=== PATIENT | male | born 1985 | race Caucasian/White ===

== ENCOUNTER 2018-07-28 20:57 | Inpatient (IN) | payer OTHER ==
[2018-07-28] MEDS ORDERED: cefTRIAXone IN SWFI 1,000 MG/10 ML SYRINGE IVP STA (21:42)
[2018-07-28] MEDS ORDERED: SODIUM CHLORIDE 0.9% 1,000 ML IV ONE (21:42)
--- NOTE | 2018-07-28 22:43 | ED ---
Extremity Problem HPI - General Source: patient Mode of arrival: ambulatory Limitations: no limitations <Rose Boss - Last Filed: 07/29/18 00:16> <Roxy Ibarra - Last Filed: 07/29/18 06:03> - General Chief complaint: Extremity Problem,Nontraumatic Stated complaint: Knee pain/infection Time Seen by Provider: 07/28/18 21:09 - History of Present Illness Initial comments: 33-year-old male presenting for left lower extremity erythema. 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 He had a small abrasion of the left knee, and developed a blister. Patient states the blister ruptured and then he began to develop surrounding erythema that extended to mid thigh to the ankle. Patient states it began to swell the skin in that area. Patient denies any circumferential swelling of the knee difficulty ranging at the left knee fever, chills, night sweats. Patient denies any numbness, tingling, loss sensation, coolness, pallor of the extremity. She states in the skin is stretched after flexion he does have some pain however this appears superficial and over the area of erythema. Patient states there is tenderness to palpation. Patient states he was able to squeeze pus out of the area where there had been a blister. Patient denies any antibiotic treatment. Patient remaining review of system negative, patient denies any recent shortness of breath, chest pain, back pain, abdominal pain, nausea or vomiting, dysuria or hematuria, constipation or diarrhea, headaches or visual changes, or any other complaints. (Rose Boss) - Related Data Home Medications Medication Instructions Recorded Confirmed [id number] 2 tab PO TID PRN 07/28/18 07/28/18 [Excedrin] Allergies Allergy/AdvReac Type Severity Reaction Status Date / Time No Known Allergies Allergy Verified 07/28/18 21:42 Review of Systems ROS Other: All systems not noted in ROS Statement are negative. <Rose Boss - Last Filed: 07/29/18 00:16> ROS Other: All systems not noted in ROS Statement are negative. <Roxy Ibarra - Last Filed: 07/29/18 06:03> ROS Statement: Those systems with pertinent positive or pertinent negative responses have been documented in the HPI. Past Medical History Past Medical History: No Reported History History of Any Multi-Drug Resistant Organisms: None Reported Past Surgical History: No Surgical Hx Reported, Orthopedic Surgery Additional Past Surgical History / Comment(s): (L) knee surgery, (R) hand surgery. Past Psychological History: No Psychological Hx Reported Smoking Status: Never smoker Past Alcohol Use History: None Reported Past Drug Use History: None Reported <Rose Boss - Last Filed: 07/29/18 00:16> - Past Family History Mother History Unknown: Yes <Roxy Ibarra P - Last Filed: 07/29/18 06:03> General Exam Limitations: no limitations <Rose Boss - Last Filed: 07/29/18 00:16> - General Exam Comments Initial Comments: General: The patient is awake and alert, in no distress, and does not appear acutely ill. Eye: Pupils are equal, round and reactive to light, extra-ocular movements are intact. No nystagmus. There is normal conjunctiva bilaterally. No signs of icterus. Ears, nose, mouth and throat: There are moist mucous membranes and no oral lesions. Neck: The neck is supple, there is no tenderness or JVD. Cardiovascular: There is a regular rate and rhythm. No murmur, rub or gallop is appreciated. Respiratory: Lungs are clear to auscultation, respirations are non-labored, breath sounds are equal. No wheezes, stridor, rales, or rhonchi. Musculoskeletal: Normal ROM of the left knee equal comparison the right, no significant tenderness. Strength 5/5. Sensation intact of the LE equal b/l. DP pulses equal bilaterally 2+. Neurological: A&O x 3. CN II-XII intact, There are no obvious motor or sensory deficits. Coordination appears grossly intact. Speech is normal. Skin: Skin is warm and dry and no rashes or lesions are noted. Small abrasion over the anterior left knee, there is significant surrounding erythema with non-distinct borders that is beyond from ankle to about mid thigh >50% of leg and circumferential of lower portion. Warm to touch, no palpable abscess. Psychiatric: Cooperative, appropriate mood & affect, normal judgment. (Rose Boss) Course Vital Signs 07/28/18 07/29/18 21:00 00:37 Temperature 98.6 F 98.3 F Pulse Rate 109 H 86 Respiratory 18 19 Rate Blood Pressure 150/87 125/81 O2 Sat by Pulse 97 100 Oximetry Medical Decision Making - Lab Data Result diagrams: 07/28/18 22:47 07/28/18 22:47 <Rose Boss - Last Filed: 07/29/18 00:16> - Lab Data Result diagrams: 07/28/18 22:47 07/28/18 22:47 <Roxy Ibarra - Last Filed: 07/29/18 06:03> - Medical Decision Making 33-year-old male presents for erythema of left lower extremity. Upon examination there is evidence of cellulitis that appears to have mechanical over the left anterior knee. Due to blistering. This does not appear to be a septic joint, patient able to fully range without difficulty there is no circumstantial swelling at the knee. No limitations with range of motion or diffuse tenderness of joint. No joint effusion on XR. SQ changes consistent with cellulitis noted. Pt has constitutional symptoms. Upon laboratory studies patient has leukocytosis with left shift. At this time given the extent of cellulitis I feel patient should be admitted for IV antibiotics. Patient was given 1 g Rocephin in the emergency department as well as IV fluids. Discussed the case with attending provider Dr. Ibarra who will speak with admitting provider Dr. Lynn. Patient is agreeable admission denies questions at this time. (Rose Boss) I personally saw and examined the patient. I reviewed and agree with the mid- level provider findings including all diagnostic interpretations and treatment plans as written unless otherwise stated. (Roxy Ibarra) - Lab Data Lab Results 07/28/18 07/28/18 Range/Units 22:47 22:47 WBC 13.0 H (3.8-10.6) k/uL RBC 4.86 (4.30-5.90) m/uL Hgb 13.8 (13.0-17.5) gm/dL Hct 42.9 (39.0-53.0) % MCV 88.3 (80.0-100.0) fL MCH 28.4 (25.0-35.0) pg MCHC 32.1 (31.0-37.0) g/dL RDW 13.5 (11.5-15.5) % Plt Count 342 (150-450) k/uL Neutrophils % 75 % Lymphocytes % 13 % Monocytes % 8 % Eosinophils % 2 % Basophils % 1 % Neutrophils # 9.8 H (1.3-7.7) k/uL Lymphocytes # 1.7 (1.0-4.8) k/uL Monocytes # 1.0 (0-1.0) k/uL Eosinophils # 0.3 (0-0.7) k/uL Basophils # 0.1 (0-0.2) k/uL Sodium 138 (137-145) mmol/L Potassium 3.7 (3.5-5.1) mmol/L Chloride 104 (98-107) mmol/L Carbon Dioxide 25 (22-30) mmol/L Anion Gap 9 mmol/L BUN 19 (9-20) mg/dL Creatinine 0.98 (0.66-1.25) mg/dL Est GFR (CKD-EPI)AfAm >90 (>60 ml/min/1.73 sqM) Est GFR (CKD-EPI)NonAf >90 (>60 ml/min/1.73 sqM) Glucose 92 (74-99) mg/dL Calcium 9.1 (8.4-10.2) mg/dL Total Bilirubin 0.7 (0.2-1.3) mg/dL AST 31 (17-59) U/L ALT 38 (21-72) U/L Alkaline Phosphatase 98 (38-126) U/L Total Protein 7.0 (6.3-8.2) g/dL Albumin 3.8 (3.5-5.0) g/dL Disposition Is patient prescribed a controlled substance at d/c from ED?: No Time of Disposition: 23:44 Decision to Admit Reason: Admit from EC Decision Date: 07/28/18 Decision Time: 23:45 <Rose Boss - Last Filed: 07/29/18 00:16> <Roxy Ibarra P - Last Filed: 07/29/18 06:03> Clinical Impression: Left leg cellulitis, Leukocytosis Disposition: ADMITTED IP TO THIS [facility] Condition: Stable
--- NOTE | 2018-07-28 23:11 | XR ---
EXAM: XR Left Knee, 3 views CLINICAL HISTORY: Reason: Pain TECHNIQUE: Three views of the left knee. COMPARISON: None available FINDINGS: Bones/joints: No evidence of fracture or dislocation. No significant arthritic changes. No evidence of knee joint effusion. Soft tissues: Diffuse subcutaneous soft tissue edematous changes. IMPRESSION: No acute bone or joint abnormalities. Diffuse subcutaneous soft tissue edematous changes.
[2018-07-28 23:14] LABS: Basophils # (A) 0.1 k/uL (0-0.2); Basophils % (A) 1 %; Eosinophils # (A) 0.3 k/uL (0-0.7); Eosinophils % (A) 2 %; HCT 42.9 % (39.0-53.0); HGB 13.8 gm/dL (13.0-17.5); Lymphocytes # (A) 1.7 k/uL (1.0-4.8); Lymphocytes % (A) 13 %; MCH 28.4 pg (25.0-35.0); MCHC 32.1 g/dL (31.0-37.0); MCV 88.3 fL (80.0-100.0); Mean Platelet Volume 6.8; Monocytes % (A) 8 %; Neutrophils # (A) 9.8 k/uL (1.3-7.7); Neutrophils % (A) 75 %; Platelet Count 342 k/uL (150-450); RBC 4.86 m/uL (4.30-5.90); RDW 13.5 % (11.5-15.5)
[2018-07-28 23:30] LABS: ALT 38 U/L (21-72); AST 31 U/L (17-59); Albumin 3.8 g/dL (3.5-5.0); Alkaline Phosphatase 98 U/L (38-126); Anion Gap 9 mmol/L; Blood Urea Nitrogen 19 mg/dL (9-20); Calcium 9.1 mg/dL (8.4-10.2); Carbon Dioxide 25 mmol/L (22-30); Chloride 104 mmol/L (98-107); Glucose 92 mg/dL (74-99); Potassium 3.7 mmol/L (3.5-5.1); Sodium 138 mmol/L (137-145); Total Bilirubin 0.7 mg/dL (0.2-1.3)
[2018-07-28] MEDS ORDERED: ONDANSETRON 4 MG/2 ML VIAL IVP PRN (23:36)
[2018-07-28] MEDS ORDERED: NALOXONE 0.4 MG/ML 1 ML VIAL IV PRN (23:36)
[2018-07-28] MEDS ORDERED: IBUPROFEN 400 MG TAB PO PRN (23:36)
[2018-07-28] MEDS ORDERED: traMADol 50 MG TAB PO PRN (23:36)
[2018-07-28] MEDS ORDERED: ACETAMINOPHEN TAB 325 MG TAB PO PRN (23:36)
[2018-07-29] MEDS: SODIUM CHLORIDE 0.9% 1,000 ML IV SCH ×2 (00:22→19:19)
[2018-07-29] MEDS ORDERED: VANCOMYCIN IV PER PHARMACY 1 EACH MISC MISCELLANE PRN (00:28)
[2018-07-29] MEDS ORDERED: VANCOMYCIN 2,000 MG in SODIUM CHLORIDE 0.9% 500 ML 500 ML IVPB SCH (01:00)
[2018-07-29 01:25] VITALS: BMI 38.6
[2018-07-29] MEDS: VANCOMYCIN 2,000 MG in SODIUM CHLORIDE 0.9% 500 ML 500 ML IVPB SCH ×3 (09:01→23:47)
[2018-07-29] MEDS: HEPARIN SODIUM,PORCINE 5,000 UNIT/ML 1 ML VIAL SQ SCH ×3 (09:02→23:47)
--- NOTE | 2018-07-29 09:38 | HP ---
HISTORY AND PHYSICAL CHIEF COMPLAINT: A 33-year-old white male with infection in his left leg. 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 He had a blister which ruptured and sent erythema throughout his entire leg down to his ankle. Difficulty with left knee movement and swelling in his extremities. Denies any fever, chills, or sweats. No numbness or tingling or pallor. States his swelling is better since he has been admitted on IV vancomycin overnight. No prior treatments. MEDICATIONS: Home medicines are Excedrin. ALLERGIES: Negative. REVIEW OF SYSTEMS: Review of systems are negative except for as mentioned above. PHYSICAL EXAMINATION: Vital signs stable, afebrile. ENDOCRINE: Alert, oriented x3. OPHTHALMOLOGIC: Pupils equal, round, react to light and accommodation. CARDIAC: Regular rate and rhythm. Lungs are essentially clear. MUSCULOSKELETAL: Normal range of motion left knee. he has some mild abrasions below the knee x3. No significant abscess. INTEGUMENT: Shows some redness and warmth to the left leg from the ankle up to the knee, greater than 50% of the leg. No palpable abscess. PSYCH: Alert and oriented x3. NEUROLOGICALLY: Intact. White count is 13, hemoglobin 13.8. Creatinine 0.98. ASSESSMENT: Acute cellulitis of the left leg, over 50% of the leg, does not appear to be a septic joint, but we will get a consult with the bone doctor just in case. Remain on IV vancomycin. Infectious Disease consulted. MMODL / IJN: [id number] /
[2018-07-29] MEDS ORDERED: LIDOCAINE 2% INJ 20 MG/ML (20 ML MDV) SQ ONE (16:11)
--- NOTE | 2018-07-29 18:47 | P.CNOR ---
History of Present Illness - HPI Consult date: 07/29/18 Consult reason: joint pain, other History of present illness: Patient is very pleasant 33-year-old male who seen and examined today at bedside. The patient says that over the past week or so he has been doing some marily and tiling and been on his knees a lot. He developed a blister at his left knee which she said she became red and opened up last night. He had some drainage from the area presented to the hospital. He was admitted and started on some and antibiotics. He is some erythema and was seen by infectious disease and we are counseled in regards to his infection around his left knee. The patient denies any other injury. He denies having fevers chills or night sweats. He says he is not having pain in his knee with motion just tightness. He says he is able to bear weight. 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 He denies any numbness tingling in his lower extremity. He says he has a blister on his right knee but that has not been giving him problems. He says that since yesterday he has been on antibiotics at hospital and it seems to be decreasing in redness. He saw Dr. Guardado earlier today with infectious disease and the area opened up and if cultures of the area. He said there is some pus from the area and it was bloody. Review of Systems Left knee issues as stated in HPI. Denies any fevers chills or night sweats. Denies any numbness [place]'s lower extremities. Denies changes bowel bladder function. Denies any recent illness. Admits to working on marily and kneeling a lot over the past week doing tiling. Past Medical History Past Medical History: No Reported History History of Any Multi-Drug Resistant Organisms: None Reported Past Surgical History: No Surgical Hx Reported, Orthopedic Surgery Additional Past Surgical History / Comment(s): (L) knee surgery, (R) hand surgery. Past Anesthesia/Blood Transfusion Reactions: No Reported Reaction Past Psychological History: No Psychological Hx Reported Smoking Status: Never smoker Past Alcohol Use History: None Reported Past Drug Use History: None Reported - Past Family History Mother History Unknown: Yes Medications and Allergies Home Medications Medication Instructions Recorded Confirmed Type [id number]-[id number] 2 tab PO TID PRN 07/28/18 07/28/18 History [Excedrin] Allergies Allergy/AdvReac Type Severity Reaction Status Date / Time No Known Allergies Allergy Verified 07/28/18 21:42 Physical Examination Osteopathic Statement: *. No significant issues noted on an osteopathic structural exam other than those noted in the History and Physical/Consult. - Knee left Appearance: other Effusion grade: trace (At his left knee he has full extension. He has some ti ghtness with flexion to about 90. At his skin there is erythema had his prepatellar bursa. There is some swelling diffusely around his knee. The prepatellar bursa. There is to blister-type areas Shanel 1 x 1 cm each the inferior aspect has some drainage from it. There is some light the purulence from the inferior blister. He is able to lift his leg up off the bed he is able to flex and extend his knee well he stands up out of bed walking and he says it felt better with walking. He is nontender as calf and thigh. His thigh and calf are soft but he does have some swelling diffusely around his upper calf on the left. He has sustained dorsal flexion plantarflexion and EHL intact. There is no hip pain. Abdomen soft nontender. His chest is good excursion deep and space expiration his neck is nontender palpation range of motion) Gait: other Results - Labs Labs: Abnormal Lab Results - Last 24 Hours (Table) 07/28/18 Range/Units 22:47 WBC 13.0 H (3.8-10.6) k/uL Neutrophils # 9.8 H (1.3-7.7) k/uL Microbiology - Last 24 Hours (Table) 07/29/18 12:55 Wound Culture - Preliminary Leg - Left H & H 07/28/18 Range/Units 22:47 Hgb 13.8 (13.0-17.5) gm/dL Hct 42.9 (39.0-53.0) % Result Diagrams: 07/28/18 22:47 07/28/18 22:47 - Diagnostic results Knee x-ray: report reviewed (X-rays of his left knee do not show any fracture or dislocation. There is some diffuse soft tissue swelling), image reviewed Assessment and Plan Assessment: Left knee infectious prepatellar bursitis, acute Left knee swelling No evidence of knee joint infection Plan: Left knee infectious prepatellar bursitis, acute Left knee swelling No evidence of knee joint infection Patient has left knee prepatellar bursitis which has become infected. He developed a blister over the area and has had some spontaneous rupture and drainage of the prepatellar bursa there is been some purulent material from the area and at bedside today I was able to milk out a significant amount of bloody purulent fluid. I was able to gain removed that area from the prepatellar bursa. He had relief with this. There is still has some small bloody drainage. The opening is approximately 2 mm in size. There is no evidence of knee joint infection. He is able to move his knee quite well and is comfortable standing on this. I do not plan on pursuing emergent surgery for his knee joint itself. His prepatellar bursa has spontaneously drained and hopefully will continue to improve with IV antibiotics potentially being converted over to oral antibiotics depending on his cultures and infectious disease service. If his improvement stalls or worsens then I think that he is a candidate for irrigation and debridement of his prepatellar bursa in surgery. I do not plan on pursuing this tonight but it would be consideration tomorrow if his symptoms worsen. If his symptoms continue to improve hopefully he will be able to begin converted to oral medications and he can be treated on a continued conservative outpatient basis. We'll continue following him closely. Time with Patient: Greater than 30
--- NOTE | 2018-07-29 23:56 | CONS ---
CONSULTATION DATE OF SERVICE: 07/29/2018. REASON FOR CONSULTATION: Left knee prepatellar bursitis with left lower extremity cellulitis. HISTORY OF PRESENT ILLNESS: The patient is a 33-year-old male presenting to the ER at [facility] with chief complaints of pain and swelling and redness in the left leg below the area. Apparently the patient has been doing some marily work and has not been using his knee pads/protector. The patient did develop a blister on the right anterior knee area a few days ago that has ruptured with drainage of some blood stained material. Subsequently, patient knee becoming more swollen, red and painful. Pain described to be throbbing almost 10 out of 10 and he presented to the hospital with no irritation, worse with weightbearing with swelling and redness extending down the leg area. The patient also had some chills. No high-grade fever has been reported. With these symptoms, the patient presented to the hospital. Patient did not have any high- grade fever. White count was elevated 30,000. His creatinine was normal. Unfortunately, no blood cultures were done by the ER physician and the patient was started on vancomycin and the patient started getting 2 g every 8 hours. Infectious Disease was consulted for further recommendation regarding antibiotic therapy. REVIEW OF SYMPTOMS: Positive points have been mentioned in HPI. Rest of systems has been negative. PAST MEDICAL HISTORY: Denies any major illnesses. PAST SURGICAL HISTORY: No major surgery. SOCIAL HISTORY: Denies smoking, drinking or drug use. FAMILY HISTORY: No pertinent findings noticed. ALLERGIES: No known drug allergies. MEDICATIONS: Medications include the patient is currently on Tylenol, heparin, Motrin, Narcan, Zofran, , vancomycin 2 g q.8 hours. PHYSICAL EXAMINATION: Blood pressure is 110/59 with a pulse of 83, temperature 99.5. He is 95% on room air. General description is a middle-aged male lying in bed in no distress. No tachypnea or accessory muscles of respiration use. HEENT: Shows no pallor. No scleral icterus. Oral mucosa membranes are dry. No pharyngeal erythema or thrush. Neck: Trachea central. No thyromegaly. Lungs unlabored breathing, clear to auscultation anteriorly. No wheeze or crackles. Heart S1, S2. Regular rate and rhythm. ABDOMEN: Soft, no tenderness. No guarding or rigidity. EXTREMITIES: No edema of the feet. Examination of the musculoskeletal system: in the prepatellar area did have swelling and redness with minimal pressure. Significant amount of purulent material came out, which was cultured. Neurological: The patient is awake, alert, oriented x3. Mood and affect is normal. LABS: Hemoglobin is 13.1, white count 13,000, BUN of 19, creatinine 0.9. Electrolytes and liver enzymes are normal. DIAGNOSTIC IMPRESSION AND PLAN: Patient with left knee prepatellar bursitis, septic with significant purulent secretion likely from a gram-positive skin venessa with question of possible strep. However, MRSA infection needs to be ruled out. PLAN: 1. Local wound culture has been obtained for gram stain and culture. 2. If the patient spikes any fever, blood culture should be obtained. 3. Ortho evaluation and possible bursectomy. 4. Vancomycin pharmacy to dose target of 15. 5. We will follow up on clinical condition and culture to further adjust medication if needed. Thank you for this consultation. We will follow this patient along with you. MMODL / IJN: [id number] /
[2018-07-30] MEDS: VANCOMYCIN 2,000 MG in SODIUM CHLORIDE 0.9% 500 ML 500 ML IVPB SCH ×3 (08:05→23:40)
[2018-07-30 08:26] LABS: Basophils # (A) 0.1 k/uL (0-0.2); Basophils % (A) 1 %; Eosinophils # (A) 0.4 k/uL (0-0.7); Eosinophils % (A) 4 %; HGB 11.9 gm/dL (13.0-17.5); Lymphocytes # (A) 1.6 k/uL (1.0-4.8); Lymphocytes % (A) 17 %; MCH 28.3 pg (25.0-35.0); MCHC 31.5 g/dL (31.0-37.0); MCV 90.1 fL (80.0-100.0); Mean Platelet Volume 7.1; Monocytes # (A) 0.8 k/uL (0-1.0); Monocytes % (A) 8 %; Neutrophils # (A) 6.4 k/uL (1.3-7.7); Neutrophils % (A) 69 %; Platelet Count 303 k/uL (150-450); RBC 4.22 m/uL (4.30-5.90); RDW 13.4 % (11.5-15.5); WBC 9.2 k/uL (3.8-10.6)
[2018-07-30] MEDS: HEPARIN SODIUM,PORCINE 5,000 UNIT/ML 1 ML VIAL SQ SCH ×3 (08:40→23:40)
[2018-07-30 08:41] LABS: ALT 30 U/L (21-72); AST 18 U/L (17-59); Albumin 3.2 g/dL (3.5-5.0); Alkaline Phosphatase 76 U/L (38-126); Anion Gap 5 mmol/L; Blood Urea Nitrogen 12 mg/dL (9-20); Calcium 8.6 mg/dL (8.4-10.2); Carbon Dioxide 26 mmol/L (22-30); Chloride 107 mmol/L (98-107); Glucose 93 mg/dL (74-99); Potassium 4.1 mmol/L (3.5-5.1); Sodium 138 mmol/L (137-145); Total Bilirubin 0.6 mg/dL (0.2-1.3)
--- NOTE | 2018-07-30 09:05 | P.PN ---
<Sharonda Song - Last Filed: 07/30/18 09:02> Subjective Progress Note Date: 07/30/18 Principal diagnosis: Septic prepatellar bursitis left knee. This is a 33-year-old male who is admitted with septic prepatellar bursitis of the left knee. He states that his knee pain is improving. He was evaluated at bedside by Dr. Mccracken last evening was able to express quite a bit of purulent material from the area. Patient states that he is able to ambulate and work on range of motion of the knee with less difficulty today. He has no new complaints or concerns today. Gram stain from the drainage reveals few gram- positive cocci in clusters. The patient's vital signs and labs are stable. Objective - Vital Signs Vital signs: Vital Signs Temp 97.9 F 07/30/18 07:00 Pulse 80 07/30/18 07:00 Resp 16 07/30/18 07:00 BP 110/72 07/30/18 07:00 Pulse Ox 94 L 07/30/18 07:00 Intake & Output 07/29/18 07/30/18 07/30/18 18:59 06:59 18:59 Intake Total 600 1000 200 Balance 600 1000 200 Intake: Intake, IV Titration 900 Amount Sodium Chloride 0.9% 1, 400 000 ml @ 50 mls/hr IV . Q20H NAV Rx#:[id number] Vancomycin 2,000 mg In 500 Sodium Chloride 0.9% 500 ml 500 ml @ 167 mls/hr IVPB Q8HR NAV Rx#: [id number] Oral 600 100 200 Other: # Voids 4 1 - Exam This is a pleasant 33-year-old male in no acute distress. He is alert and oriented 3. Exam of the left knee reveals less erythema today. Less swelling. There is a small amount of drainage from the small opening on the anterior aspect of the knee. The drainage is more clear today. He has full range of motion of the knee without difficulty. Neurovascular status to the lower extremity is intact. Dressing is changed. - Labs CBC & Chem 7: 07/30/18 07:02 07/30/18 07:02 Labs: Abnormal Lab Results - Last 24 Hours (Table) 07/30/18 07/30/18 Range/Units 07:02 07:02 RBC 4.22 L (4.30-5.90) m/uL Hgb 11.9 L (13.0-17.5) gm/dL Hct 38.0 L (39.0-53.0) % Total Protein 6.0 L (6.3-8.2) g/dL Albumin 3.2 L (3.5-5.0) g/dL Microbiology - Last 24 Hours (Table) 07/29/18 12:55 Gram Stain - Preliminary Leg - Left Wound Culture - Preliminary Assessment and Plan (1) Septic prepatellar bursitis of left knee Current Visit: Yes Status: Acute Code(s): M71.162 - OTHER INFECTIVE BURSITIS, LEFT KNEE SNOMED Code(s): 60081228 (2) Left leg cellulitis Current Visit: Yes Status: Acute Code(s): L03.116 - CELLULITIS OF LEFT LOWER LIMB SNOMED Code(s): 863159867 Plan: The clinical findings are discussed with the patient. If he continues to improve he may be discharged from an orthopedic standpoint. Antibiotics per infectious disease. We will continue to follow while inpatient. <Danielle Mccracken - Last Filed: 07/30/18 11:17> Objective - Vital Signs Vital signs: Vital Signs Temp 97.9 F 07/30/18 07:00 Pulse 80 07/30/18 07:00 Resp 16 07/30/18 07:00 BP 110/72 07/30/18 07:00 Pulse Ox 94 L 07/30/18 07:00 Intake & Output 07/29/18 07/30/18 07/30/18 18:59 06:59 18:59 Intake Total 600 1000 200 Balance 600 1000 200 Intake: Intake, IV Titration 900 Amount Sodium Chloride 0.9% 1, 400 000 ml @ 50 mls/hr IV . Q20H NAV Rx#:[id number] Vancomycin 2,000 mg In 500 Sodium Chloride 0.9% 500 ml 500 ml @ 167 mls/hr IVPB Q8HR NAV Rx#: [id number] Oral 600 100 200 Other: # Voids 4 1 - Labs CBC & Chem 7: 07/30/18 07:02 07/30/18 07:02 Labs: Abnormal Lab Results - Last 24 Hours (Table) 07/30/18 07/30/18 Range/Units 07:02 07:02 RBC 4.22 L (4.30-5.90) m/uL Hgb 11.9 L (13.0-17.5) gm/dL Hct 38.0 L (39.0-53.0) % Total Protein 6.0 L (6.3-8.2) g/dL Albumin 3.2 L (3.5-5.0) g/dL Microbiology - Last 24 Hours (Table) 07/29/18 12:55 Gram Stain - Preliminary Leg - Left Wound Culture - Preliminary Presumptive MRSA Assessment and Plan Plan: The patient was seen and examined at bedside. His left knee is making impro vement. There is still some drainage but it is clearing with less pus. There is less erythema. He feels more comfortable and is continuing his antibiotics per infectious disease. I do not plans of surgery today and he should continue with conservative management for the time being.
--- NOTE | 2018-07-30 15:21 | PN ---
PROGRESS NOTE DATE OF SERVICE: 07/30/2018 REASON FOR FOLLOWUP: Left knee septic prepatellar bursitis and MRSA. INTERVAL HISTORY: The patient is afebrile. The patient did have a further bedside drainage of the left knee, prepatellar bursitis site. The patient stated the fluid is not coming as cloudy and bloody as it was yesterday. Pain to the left leg is currently controlled. Patient denies having any chest pain, no shortness of breath, no cough, no abdominal pain, no diarrhea. PHYSICAL EXAMINATION: Blood pressure 110/72 with a pulse of 80, temperature 97.9, he is 94% on room air. General description is a middle-aged male, lying in bed in no distress. RESPIRATORY SYSTEM: Unlabored breathing, clear to auscultation anteriorly. HEART: S1, S2. Regular rate and rhythm. The left knee is currently dressed up: Overall, redness is decreased. LABS: Hemoglobin is 11.1, white count 9.2, BUN of 12, creatinine 0.92. Wound culture with presumptive MRSA. DIAGNOSTIC IMPRESSION AND PLAN: Patient with left knee septic prepatellar bursitis, status post spontaneous drainage, culture with presumptive MRSA. Patient to continue with vancomycin while waiting for the sensitivity to finalize. Continue supportive care. MMODL / IJN: [id number] /
[2018-07-30] MEDS: SODIUM CHLORIDE 0.9% 1,000 ML IV SCH (17:12)
[2018-07-31] MEDS ORDERED: VANCOMYCIN TROUGH DUE 1 EACH MISC MISCELLANE ONE (07:00)
[2018-07-31] MEDS: VANCOMYCIN 2,000 MG in SODIUM CHLORIDE 0.9% 500 ML 500 ML IVPB SCH (08:19)
[2018-07-31] MEDS: HEPARIN SODIUM,PORCINE 5,000 UNIT/ML 1 ML VIAL SQ SCH (08:19)
[2018-07-31 09:25] VITALS: BP 125/77; PULSE 75; RESP 21; TEMP 97.7
--- NOTE | 2018-07-31 11:42 | P.PN ---
Subjective Progress Note Date: 07/31/18 Principal diagnosis: Septic prepatellar bursitis left knee. This is a 33-year-old male who is admitted with septic prepatellar bursitis of the left knee. He states that his knee pain is improving. He is had minimal drainage out of the wound. He has no new complaints or concerns today. Vital signs are stable. Objective - Vital Signs Vital signs: Vital Signs Temp 97.7 F 07/31/18 07:00 Pulse 75 07/31/18 07:00 Resp 21 07/31/18 07:00 BP 125/77 07/31/18 07:00 Pulse Ox 96 07/31/18 07:00 Intake & Output 07/30/18 07/31/18 07/31/18 18:59 06:59 18:59 Intake Total 400 1400 200 Output Total 320 Balance 80 1400 200 Intake: Intake, IV Titration 1400 Amount Sodium Chloride 0.9% 1, 400 000 ml @ 50 mls/hr IV . Q20H NAV Rx#:[id number] Vancomycin 2,000 mg In 1000 Sodium Chloride 0.9% 500 ml 500 ml @ 167 mls/hr IVPB Q8HR NAV Rx#: [id number] Oral 400 200 Output: Urine 320 Other: Voiding Method Toilet # Voids 2 1 - Exam This is a pleasant 33-year-old male in no acute distress. He is alert and oriented 3. Exam of the left knee reveals minimal erythema today. Minimal swelling. There is a small amount of drainage on the dressing. There is no active drainage at this time. He has full range of motion of the knee and foot and ankle without difficulty or pain. Neurovascular status to the lower extremity is intact. - Labs CBC & Chem 7: 07/30/18 07:02 07/30/18 07:02 Labs: Microbiology - Last 24 Hours (Table) 07/29/18 12:55 Gram Stain - Final Leg - Left Wound Culture - Final Methicillin resist S. aureus Assessment and Plan (1) Septic prepatellar bursitis of left knee Current Visit: Yes Status: Acute Code(s): M71.162 - OTHER INFECTIVE BURSITIS, LEFT KNEE SNOMED Code(s): 53802514 (2) Left leg cellulitis Current Visit: Yes Status: Acute Code(s): L03.116 - CELLULITIS OF LEFT LOWER LIMB SNOMED Code(s): 552114681 Plan: The clinical findings are discussed with the patient. He may be discharged from an orthopedic standpoint. Follow-up in our office in 1 week for reevaluation.
[2018-07-31] MEDS: SODIUM CHLORIDE 0.9% 1,000 ML IV SCH (12:46)
--- NOTE | 2018-07-31 14:04 | PN ---
PROGRESS NOTE DATE OF SERVICE: 07/31/2018 REASON FOR FOLLOWUP: Left knee septic prepatellar bursitis. INTERVAL HISTORY: The patient is currently afebrile. Pain to the left knee is much improved. He is able to walk. He denies having any chest pain. No shortness of breath, no cough, no abdominal pain, no diarrhea. PHYSICAL EXAMINATION: Blood pressure 125/77 with a pulse of 75, temperature is 97.7, he is 96% on room air. General description is a middle-aged male, up in the bed in no distress. RESPIRATORY SYSTEM: Unlabored breathing, clear to auscultation anteriorly. HEART: S1, S2. Regular rate and rhythm. Left knee pain and swelling has improved, no drainage. LABS: The wound culture finalized with MRSA Bactrim sensitive. IMPRESSION AND PLAN: Patient with left knee septic bursitis, status post spontaneous drainage. Patient has excellent clinical improvement. Antibiotic will be transitioned to Bactrim DS 1 twice a day for 10 days. Script sent to Pharmacy. Will continue to follow. MMODL / IJN: [id number] /
[2018-07-31] MEDS ORDERED: VANCOMYCIN 1,750 MG in SODIUM CHLORIDE 0.9% 500 ML 500 ML IVPB SCH (16:00)
== END 2018-07-31 15:43 | disposition home or self-care (01) | DRG 558 ==
LOC: EC 20:57 → 4SSUR 07-29 00:01
PROVIDERS: ADMIT Family Medicine; ATTEND Family Medicine
DX: M71.162 Other infective bursitis, left knee (principal); L03.116 Cellulitis of left lower limb; S80.212A Abrasion, left knee, initial encounter; B95.62 Methicillin resistant Staphylococcus aureus infection as the cause of diseases classified elsewhere
CPT/HCPCS: 36415; 80053; 80202; 85025; 87070; 87077; 87186; 87205; 96361; 96374; 99284